=== PATIENT | male | born 1960 | race Two or more races ===

== ENCOUNTER 2024-04-09 13:17 | Emergency (ER) | payer OTHER ==
[~2024-04-09] VITALS: Ht 172.7 cm; Wt 83.9 kg
[2024-04-09] MEDS ORDERED: LOSARTAN-HCTZ1 EAC1 PO (14:20)
[2024-04-09] MEDS ORDERED: KETOROLAC TROMETHAMINE 60 MG VIAL IM STA (16:35)
[2024-04-09] MEDS ORDERED: DEXAMETHASONE SODIUM PHOSPHATE 4 MG/ML VIAL IM STA (16:35)
[2024-04-09] MEDS ORDERED: OxyCODONE HCL/APAP UD (PERCOCET) PO STA (16:36)
== END 2024-04-09 19:13 | disposition home or self-care (01) ==
LOC: ER 13:19
DX: M25.551 Pain in right hip (principal)
CPT/HCPCS: 73501; 96372; 99283; J1100; J1885